=== PATIENT | male | born 2000 | race Hispanic/Latino ===

== ENCOUNTER 2019-03-09 22:20 | Emergency (ER) | payer OTHER ==
--- NOTE | 2019-03-09 22:58 | EDPHYS ---
Physician Documentation [facility] Name: Jeremy Espinoza Age: 18 yrs Sex: Male : 2000 Arrival Date: 03/09/2019 Time: 22:26 Bed 6 Private MD: out of town, doctor ED Physician Hardik Palmer HPI: 03/10 00:24 This 18 yrs old Male presents to ER via Wheelchair with complaints of PICC kdr line clotted. 00:24 The patient tried to flush his PIC line and was not able to do so.. Onset: The kdr symptoms/episode began/occurred just prior to arrival. Severity of symptoms: At their worst the symptoms were very mild in the emergency department the symptoms are unchanged. The patient has not experienced similar symptoms in the past. The patient has not recently seen a physician. Historical: - Allergies: 03/09 22:32 No Known Allergies; la1 - PMHx: 22:32 None; la1 - PSHx: 22:32 tendon replacement in hand; tibia/knee fx on right; la1 - Immunization history:: Adult Immunizations up to date. - Social history:: Smoking status: Patient/guardian denies using tobacco. - Ebola Screening: : No symptoms or risks identified at this time. ROS: 03/10 00:24 Constitutional: No new c/o other than the potential line problem kdr Exam: 00:24 Constitutional: Exam deferred as this is a MSE for a possible line clotted kdr Vital Signs: 03/09 22:34 BP 114 / 66; Pulse 89; Resp 18; Temp 99.0; Pulse Ox 98% on R/A; Weight 52.62 kg; Height la1 5 ft. 9 in. (175.26 cm); Pain 6/10; 22:34 Body Mass Index 17.13 (52.62 kg, 175.26 cm) la1 MDM: 22:57 Patient medically screened. kdr 03/10 00:24 Data reviewed: vital signs. Counseling: I had a detailed discussion with the patient kdr and/or guardian regarding: the historical points, exam findings, and any diagnostic results supporting the discharge/admit diagnosis, The patient had no other c/o or problems in the ED. Administered Medications: No medications were administered Disposition: 03/09 22:46 PICC Line Problem - resolved. kdr Disposition: 03/09/19 22:57 Discharged to Home. Impression: Transient PIC line malfunction. - Condition is Stable. - Medication Reconciliation Form, Thank You Letter, Antibiotic Education, Prescription Opioid Use form. - Follow up: Private Physician; When: 2 - 3 days; Reason: If symptoms return, Further diagnostic work-up, Recheck today's complaints, Continuance of care, Re-evaluation by your physician. - Problem is new. - Symptoms are resolved. Signatures: Hardik Palmer MD MD kdr Juan Francisco Mccann RN RN la1 Jose Graham RN RN jd3 Corrections: (The following items were deleted from the chart) 22:58 22:57 03/09/2019 22:57 Discharged to Home. Impression: Transient PIC line malfunction. jd3 Condition is Stable. Forms are Medication Reconciliation Form, Thank You Letter, Antibiotic Education, Prescription Opioid Use. Follow up: Private Physician; When: 2 - 3 days; Reason: If symptoms return, Further diagnostic work-up, Recheck today's complaints, Continuance of care, Re-evaluation by your physician. Problem is new. Symptoms are resolved. kdr
--- NOTE | 2019-03-09 22:58 | ER ---
Nurse's Notes [facility] Name: Jeremy Espinoza Age: 18 yrs Sex: Male : 2000 Arrival Date: 03/09/2019 Time: 22:26 Bed 6 Private MD: out of town, doctor Diagnosis: Transient PIC line malfunction Presentation: 03/09 22:32 Presenting complaint: Patient states: I was released from [facility] yesterday and today la1 my picc line is not working. Transition of care: patient was not received from another setting of care. Onset of symptoms was March 09, 2019. Risk Assessment: Do you want to hurt yourself or someone else? Patient reports no desire to harm self or others. Initial Sepsis Screen: Does the patient meet any 2 criteria? No. Patient's initial sepsis screen is negative. Does the patient have a suspected source of infection? No. Patient's initial sepsis screen is negative. Care prior to arrival: None. 22:32 Method Of Arrival: Wheelchair la1 22:32 Acuity: JOS 4 la1 Historical: - Allergies: 22:32 No Known Allergies; la1 - PMHx: 22:32 None; la1 - PSHx: 22:32 tendon replacement in hand; tibia/knee fx on right; la1 - Immunization history:: Adult Immunizations up to date. - Social history:: Smoking status: Patient/guardian denies using tobacco. - Ebola Screening: : No symptoms or risks identified at this time. Screenin:44 Abuse screen: Denies threats or abuse. Nutritional screening: No deficits noted. jd3 Tuberculosis screening: No symptoms or risk factors identified. Fall Risk Ambulatory Aid- None/Bed Rest/Nurse Assist (0 pts). Gait- Impaired (20 pts.). Mental Status- Oriented to own ability (0 pts). Total Stratton Fall Scale indicates No Risk (0-24 pts). Assessment: 22:41 General: Appears in no apparent distress. uncomfortable, Behavior is calm, cooperative, jd3 appropriate for age. Pain: Denies pain. Neuro: Level of Consciousness is awake, alert, obeys commands, Oriented to person, place, time, situation, Appropriate for age. Cardiovascular: Capillary refill < 3 seconds Patient's skin is warm and dry. Respiratory: Airway is patent Respiratory effort is even, unlabored, Respiratory pattern is regular, symmetrical. GI: No signs and/or symptoms were reported involving the gastrointestinal system. : No signs and/or symptoms were reported regarding the genitourinary system. EENT: No signs and/or symptoms were reported regarding the EENT system. Derm: Skin is intact, Skin is dry, Skin is normal, Skin temperature is warm. Musculoskeletal: Circulation, motion, and sensation intact. pt with immobilization in place to right leg status post surgery. 22:44 Reassessment: Upon examining PICC noted that it was flushing without problem. Spoke fc with pt and he understands how to flush and clamp line. Pt started his own antibiotics. Dr Palmer in to see pt and is aware that line flushes and is working well. Vital Signs: 22:34 BP 114 / 66; Pulse 89; Resp 18; Temp 99.0; Pulse Ox 98% on R/A; Weight 52.62 kg; Height la1 5 ft. 9 in. (175.26 cm); Pain 6/10; 22:34 Body Mass Index 17.13 (52.62 kg, 175.26 cm) la1 ED Course: 22:26 Patient arrived in ED. mr 22:26 out of town, doctor is Private Physician. mr 22:32 Arm band placed on left wrist. la1 22:33 Triage completed. la1 22:41 Jose Graham, RN is Primary Nurse. jd3 22:43 Accessed PICC line. pt reporting clotted pick line. right sided PICC flushed well and jd3 has good blood return. 22:44 Hardik Palmer MD is Attending Physician. kdr 22:45 Patient has correct armband on for positive identification. Bed in low position. Call jd3 light in reach. Side rails up X 1. Adult w/ patient. 22:45 No provider procedures requiring assistance completed. Patient did not have IV access jd3 during this emergency room visit. Administered Medications: No medications were administered Outcome: 22:50 Medical screen evaluation completed per provider. Patient declined treatment. fc 22:50 Condition: good 22:50 Discharge instructions given to patient, family, Instructed on discharge instructions, follow up and referral plans. Demonstrated understanding of instructions, follow-up care. 22:57 Discharge ordered by . kdr 22:58 Patient left the ED. jd3 Signatures: Hardik Palmer MD MD kdr Rivera, Mary mr Alyssia Morrow, RN Juan Francisco Person RN RN la1 Davies, Jonathon, RN RN jd3 Corrections: (The following items were deleted from the chart) 22:50 22:41 Musculoskeletal: Circulation, motion, and sensation intact. Range of motion: jd3 intact in all extremities, jd3
== END 2019-03-09 22:58 | disposition home or self-care (01) ==
LOC: ER 22:20
DX: T85.618A Breakdown (mechanical) of other specified internal prosthetic devices, implants and grafts, initial encounter (principal)
CPT/HCPCS: 99284